=== PATIENT | female | born 1975 | race Two or more races ===

== ENCOUNTER 2024-11-10 10:46 | Emergency (ER) | payer OTHER, SELFPAY ==
[2024-11-10 10:58] VITALS: BP 176/100
--- NOTE | 2024-11-10 11:28 | ED.MUSCINJ ---
HPI-Injury
General
Chief Complaint: Extremity Pain (non-traumatic)
Source: patient
Exam Limitations: none
Time Seen by Provider: 11/10/24 11:14
History of Present Illness-Injury
Initial Injury comments:
49-year-old [id number] female presents complaining of almost a months worth of left shoulder pain. The pain is along the anterior lateral aspect of the shoulder made worse with motion and trying to sleep. It is made better with ibuprofen.
No known injury. No chest pain or associated numbness or weakness. No other complaints at this time
Phy Exam
Physical Exam
Physical Exam:
General: Well-appearing female no acute distress
Musculoskeletal exam: Left shoulder tender to the anterior lateral aspect of the shoulder no deformities good passive range of motion however active range of motion is limited. She has good strength to the shoulder when testing it.
Vascular: 2+ radial pulse left wrist
Heart: Regular rate and rhythm
Lungs: Clear no wheeze
Injury Course
Orders/Labs/Results
Orders:
Orders
11/10/24 11:04
EKG [Electrocardiogram (*1)] Urgent
Reason for Study: Other
Other Reason for Exam: left shoulder pain
11/10/24 11:05
EKG- Treatment ONCE
Shoulder, Left, Trauma CR [CR Shoulder, Trauma - Left] Urgent
Comment:
Reason For Exam: pain
MDM/Problems Addressed
Differential Diagnosis Includes:
Left shoulder discomfort. Differential could include strain versus bursitis. She has no associated chest pain. EKG through triage shows sinus rhythm. Do not suspect cardiac related shoulder discomfort. Consider calcific tendinitis. X-ray
pending.
*Critical Care Note
Total Time (30-74mins, 75-104mins- exclusive of procedures): Not Applicable
Update Note
Update Note:
X-rays left shoulder reviewed. There is question about potential fracture of the distal clavicle. There was no trauma. Clinical exam does not suggest this however will send patient home on a sling with orthopedic follow-up. I suspect more
rotator cuff pathology given her exam. Recommended continued use of NSAIDs.
ED Attending Note
-
Portions of this chart may have been created with voice recognition software.� Occasional wrong word or��sound alike� substitutions may have occurred due to the inherent limitations of voice recognition software.
Discharge Plan
Departure
Patient Disposition: Home (Routine Discharge)
Date of Disposition: 11/10/24
Time of Disposition: 12:46
Patient with high blood pressure during this ER visit?: No
Discharge Problem:
Left shoulder strain
Instructions: Muscle and Bone Pain (DC)
Referrals:
Minerva Peter, [Family Provider] -
Silvano Serna MD [Active] -
Activity Restrictions/Additional Instructions:
Rest. Use sling for support. Continue with ibuprofen. Follow-up with orthopedics for further evaluation
Interventions
Interventions:
*Risk Screen - Suicide Last Done: 11/10/24 10:58
ED-Musculoskeletal Assessment Last Done: 11/10/24 11:25
Discharge Date and Time
Print Language: Syrian
== END 2024-11-10 13:10 | disposition home or self-care (01) ==
LOC: EMR 10:46
PROVIDERS: EMERGENCY PHYSICIAN Emergency Medicine; FAMILY PHYSICIAN Family Medicine
DX: S46.912A Strain of unspecified muscle, fascia and tendon at shoulder and upper arm level, left arm, initial encounter (principal); X58.XXXA Exposure to other specified factors, initial encounter
CPT/HCPCS: 99283; 73030; 93005